=== PATIENT | male | born 1965 | race African-American/Black ===

== ENCOUNTER 2020-11-06 19:59 | Emergency (ER) | payer OTHER, SELFPAY ==
[2020-11-06 20:00] VITALS: BP 179/100; PULSE 133; RESP 20; TEMP 36.6; O2SAT 100; BMI 24.4
--- NOTE | 2020-11-06 20:15 | CT_ITS ---
STUDY: CT ABDOMEN AND PELVIS WITH CONTRAST REASON FOR EXAM: Male, 55 years old. abd pain -- IV PO Contrast RADIATION DOSAGE (If Supplied By Facility): CTDIvol = ( 11.63 ) mGy, DLP = ( 523.46 ) mGycm TECHNIQUE: Transaxial images were obtained from the dome of the diaphragm to the symphysis pubis with oral contrast. IV 100mL Isovue-370 was administered. Sagittal and coronal images were reconstructed. Individualized dose optimization techniques were used for this CT. COMPARISON: None. FINDINGS: The visualized lung bases are unremarkable. The visualized portions of the heart are within normal limits. Normal liver. Normal gallbladder and extrahepatic biliary system. Normal spleen. Normal pancreas. Normal bilateral adrenal glands. Normal right kidney. Normal left kidney. Normal visualized stomach. Dilated loops of small bowel with scattered air-fluid levels involving the lower pelvic region. No discrete transition point at this time. Early small bowel obstruction should be considered versus ileus. There are multiple colonic diverticula consistent with diverticulosis. The appendix is visualized and appears normal. There is diffuse atherosclerotic calcification of the abdominal aorta, without a demonstrated aneurysm. Normal inferior vena cava. Normal retroperitoneum. Normal urinary bladder. Normal visualized prostate gland. Normal abdominal wall. Normal osseous structures. CT/Abdomen/Pelvis WITH Contrast IMPRESSION: Dilated loops of small bowel in the lower abdominal region. No discrete transition point at this time. Possible early small bowel obstruction versus ileus. Colonic diverticulosis without acute diverticulitis. Electronically Signed: Gideon Faustin DO at 22:45 EDT Tel , Service support ,
--- NOTE | 2020-11-06 20:16 | EDS_ITS ---
HPI History of Present Illness Chief Complaint: Abd Pain Informant: patient Onset/Context/Timing Onset: Yesterday Context: Gradual Onset Current Severity: Moderate Maximum Severity: Severe Narrative Narrative: Patient presents with lower abdominal pain, worse in the left lower quadrant that started yesterday. Patient reports a history of diverticulitis and kidney stones. He states after having a bowel movement today and wiping himself he did note some rectal tenderness as well. No blood in the stool. No fevers or chills. Patient denies any prior abdominal surgeries. [facility] Medical History CHF (congestive heart failure) Colon polyp COPD (chronic obstructive pulmonary disease) Diverticulosis HTN (hypertension) Inguinal hernia Home Medications aspirin 81 mg PO DAILY 11/06/20 [History Last Taken Unknown] atorvastatin 11/06/20 [History Last Taken Unknown] cetirizine [Zyrtec] 10 mg PO DAILY 11/06/20 [History Last Taken Unknown] furosemide 11/06/20 [History Last Taken Unknown] gabapentin 400 mg PO TID 11/06/20 [History Last Taken Unknown] metoprolol tartrate 25 mg PO DAILY 11/06/20 [History Last Taken Unknown] ondansetron 4 mg PO Q8H PRN #10 tab 11/06/20 [Rx Last Taken Unknown] oxycodone-acetaminophen [Percocet] 1 tab PO Q6H PRN 3 Days #10 tab 11/06/20 [Rx Last Taken Unknown] sacubitril-valsartan [Entresto] 1 tab PO BID 11/06/20 [History Last Taken Unknown] spironolactone 11/06/20 [History Last Taken Unknown] Allergy/AdvReac Type Severity Reaction Status Date / Time No Known Allergies Allergy Verified 11/06/20 19:59 Social History Smoking Status: Current every day smoker tobacco type: cigarettes ROS ROS ED Constitutional Constitutional ED: Denies chills or fever(s) Eyes Eyes: Denies change in vision ENT ENT ED: Denies sore throat Cardiovascular Cardiovascular: Denies chest pain Respiratory/Chest Respiratory/Chest: Denies cough or dyspnea Gastrointestinal Gastrointestinal: Reports abdominal pain; Denies diarrhea, nausea or vomiting Genitourinary Genitourinary ED: Denies dysuria Musculoskeletal Musculoskeletal: Denies back pain Integumentary Denies rash Neurologic Neurologic: Denies headache(s) or weakness Psychiatric Psychiatric: Denies anxiety or depression Endocrine Endocrinology: Denies polydipsia or polyuria Allergic/Immunologic Allergic/Immunologic ED: Denies urticaria EXAM Physical Exam Const Vital Signs: 11/06/20 20:00 11/06/20 22:55 Temperature 97.9 F Temperature Source Temporal Pulse Rate 133 H 94 Respiratory Rate 20 H 14 Blood Pressure 179/100 H 163/99 H Blood Pressure Mean 126 120 Pulse Ox 100 99 Oxygen Delivery Method Room Air Room Air Positive well nourished and well developed General Appearance ED: well developed HEENT Reports normocephalic and head/scalp atraumatic Eyes PERRL and EOMs intact bilaterally Neck supple Chest Wall inspection of chest normal and palpation of chest normal Resp normal respiratory effort and clear to auscultation bilaterally Cardio regular rate and regular rhythm GI Auscultation: hypoactive bowel sounds Palpation: soft and tender LLQ Extremity normal to inspection Neuro oriented x3 and no sensory deficits noted Sensorium / Orientation: alert Motor Exam: strength 5/5 throughout Psych mental status grossly normal Skin no rashes or lesions noted MDM MDM MDM Narrative Medical decision making narrative: Lab work and urinalysis is obtained. CT scan abdomen pelvis with p.o. and IV contrast is ordered. Patient is given morphine and Zofran for pain control. Lab Data Attestation: I reviewed the patient's lab results. Labs: Laboratory Results - last 24 hr 11/06/20 11/06/20 11/06/20 20:20 20:40 21:00 WBC 6.1 RBC 4.83 Hgb 15.5 Hct 45.9 MCV 95.0 H MCH 32.1 H MCHC 33.8 RDW Std Deviation 45.1 H RDW Coeff of Erich 12.8 Plt Count 229 MPV 9.9 Immature Gran % (Auto) 0.200 Neut % (Auto) 39.0 L Lymph % (Auto) 45.1 H Mcdowell % (Auto) 13.9 H Eos % (Auto) 1.6 Baso % (Auto) 0.2 Absolute Neuts (auto) 2.4 Absolute Lymphs (auto) 2.76 Nucleated RBC % 0 Sodium Cancelled Potassium Cancelled Chloride Cancelled Carbon Dioxide Cancelled Anion Gap Cancelled BUN Cancelled Creatinine Cancelled Estim Creat Clear Calc Cancelled Est GFR (MDRD) Af Amer Cancelled Est GFR (MDRD) Non-Af Cancelled BUN/Creatinine Ratio Cancelled Glucose Cancelled Calcium Cancelled Urine Color Yellow Urine Clarity Clear Urine pH 6.0 Ur Specific Zephyr 1.020 Urine Protein 30 H Urine Glucose (UA) Normal Urine Ketones 5 H Urine Occult Blood 10 H Urine Nitrite Negative Urine Bilirubin Negative Urine Urobilinogen 1 H Ur Leukocyte Esterase 25 H Urine RBC 0 SEEN Urine WBC 0 SEEN Ur Squamous Epith Cells 0 SEEN Calcium Oxalate Crystal 2+ Urine Bacteria 0 SEEN Urine Mucus 0 SEEN 11/06/20 21:00 WBC RBC Hgb Hct MCV MCH MCHC RDW Std Deviation RDW Coeff of Erich Plt Count MPV Immature Gran % (Auto) Neut % (Auto) Lymph % (Auto) Mcdowell % (Auto) Eos % (Auto) Baso % (Auto) Absolute Neuts (auto) Absolute Lymphs (auto) Nucleated RBC % Sodium 141 Potassium 3.8 Chloride 107 Carbon Dioxide 29.0 Anion Gap 5 BUN 7 Creatinine 1.13 Estim Creat Clear Calc 82.03 Est GFR (MDRD) Af Amer 87 Est GFR (MDRD) Non-Af 72 BUN/Creatinine Ratio 6.2 L Glucose 94 Calcium 9.0 Urine Color Urine Clarity Urine pH Ur Specific Zephyr Urine Protein Urine Glucose (UA) Urine Ketones Urine Occult Blood Urine Nitrite Urine Bilirubin Urine Urobilinogen Ur Leukocyte Esterase Urine RBC Urine WBC Ur Squamous Epith Cells Calcium Oxalate Crystal Urine Bacteria Urine Mucus Radiography Diagnostic Testing: Radiology Impression Abdomen/Pelvis CT 11/06/20 20:15 IMPRESSION: Dilated loops of small bowel in the lower abdominal region. No discrete transition point at this time. Possible early small bowel obstruction versus ileus. Colonic diverticulosis without acute diverticulitis. Electronically Signed: Gideon Faustin DO at 22:45 EDT Tel , Service support , Treatment and Re-Evaluation Comments:: On repeat evaluation patient reports pain is improved but still present. Test results discussed with him. At this time lab work is unrema rkable. Urinalysis normal. CT scan reveals dilated loops of small bowel in the lower abdomen. This could represent possible early small bowel obstruction versus ileus. On repeat exam patient does have bowel sounds present. He does continue to have tenderness but no guarding or rebound. Patient lives in [place] and is supposed to go home tomorrow morning. He wishes to try to make at home to see his doctors there. We will give him analgesics and antiemetics. We will make copies of his lab work and CT to take with him. Discharge Plan Triage Chief Complaint: Abd Pain ED Provider: Anastasia Weiner Dx/Rx/DC Orders Clinical Impression: Abdominal pain, Ileus Instructions: Ileus Prescriptions: New oxycodone-acetaminophen [Percocet] 5-325 mg tablet 1 tab PO Q6H PRN (Reason: pain) 3 Days Qty: 10 RF: 0 ondansetron 4 mg tablet,disintegrating 4 mg PO Q8H PRN (Reason: nausea and vomiting) Qty: 10 RF: 0 No Action cetirizine [Zyrtec] 10 mg Tablet 10 mg PO DAILY RF: 0 spironolactone 25 mg Tablet RF: 0 aspirin 81 mg Tablet 81 mg PO DAILY RF: 0 metoprolol tartrate 25 mg Tablet 25 mg PO DAILY RF: 0 Entresto 49-51 mg Tablet 1 tab PO BID RF: 0 atorvastatin RF: 0 furosemide RF: 0 gabapentin 400 mg Tablet 400 mg PO TID RF: 0 [facility] [Primary Care Provider] - Disposition Disposition: Home, Self Care
[2020-11-06 20:33] LABS: Bacteria 0 SEEN /hpf (None Seen); Mucous, Urine 0 SEEN /hpf (<or=2+); Red Blood Cells-Urine 0 SEEN /hpf (0-5); Squamous Epithelial Cells - UA 0 SEEN /hpf (0-5); White Blood Cells 0 SEEN /hpf (0-5)
[2020-11-06 20:44] LABS: Color, Urine Yellow (Yellow); Glucose, Dipstick Normal (Normal); Ketone-Dipstick 5 mg/dl (Negative); Leukocyte Esterase-Dipstick 25 /ul (Negative); Nitrite-Dipstick Negative (Negative); Occult Blood-Urine 10 /ul (Negative); Protein-Dipstick 30 mg/dl (Negative); Urine Bilirubin Dipstick Negative (Negative); Urine Clarity Clear (Clear); Urine Urobilinogen 1 mg/dl (Normal)
[2020-11-06 21:12] LABS: Calcium Oxalate Crystals Ur 2+ /hpf (<or=2+)
[2020-11-06] MEDS: Morphine 4 MG/ML Syringe IV (21:12)
[2020-11-06] MEDS: Ondansetron 4 MG/2 ML Vial IV (21:13)
[2020-11-06 21:22] LABS: Absolute Lymphocyte Count 2.76 X10^3/uL (0.83-4.51); Absolute Neutrophil Count 2.4 X10^3/uL (2.0-7.7); Basophil# 0.01 X10^3/uL; Basophil% 0.2 % (0-1); Eosinophils% 1.6 % (0-5); Hematocrit 45.9 % (40-54); Hemoglobin 15.5 g/dL (13.0-16.5); Lymphocyte # 2.76 X10^3/ul (0.83-4.51); Lymphocyte % 45.1 % (19-41); Mean Corp Hgb Conc 33.8 g/dL (32-36); Mean Corpuscular Hgb 32.1 pg (27.0-32.0); Mean Platelet Vol. 9.9 fl (6.2-12.0); Monocyte# 0.85 X10^3/uL; Monocyte% 13.9 % (0-10); NRBC Flagged by Analyzer 0 % (0-5); Neutrophil # 2.39 X10^3/uL (2.7-7.7); Platelet Count 229 K/mm3 (150-450); RBC Distribution Width CV 12.8 % (11.6-14.6); RBC Distribution Width SD 45.1 fl (35.1-43.9); Red Blood Count 4.83 M/mm3 (4.6-6.2); White Blood Count 6.1 K/mm3 (4.4-11.0)
[2020-11-06 22:00] LABS: BUN 7 mg/dL (7-18); Creatinine, Serum 1.13 mg/dL (0.70-1.30); Estimated Creatinine Clearance 82.03 ml/min; Glucose 94 mg/dL (74-106)
[2020-11-06 22:01] LABS: Anion Gap 5 (5-15); BUN/Creat Ratio 6.2 RATIO (10-20); Chloride 107 mmol/L (98-107); EST Glomerular Filtration Rate 72 mL/min (>60); Est Glom Filt Rate - Afr Amer 87 mL/min (>60); Potassium 3.8 mmol/L (3.5-5.1); Sodium Level 141 mmol/L (136-145)
[2020-11-06 22:55] VITALS: BP 163/99; PULSE 94; RESP 14; O2SAT 99
[2020-11-06] MEDS: HYDROmorphone 0.5 MG/0.5 ML SYRINGE IV (23:14)
[2020-11-06 23:44] VITALS: BP 166/101; PULSE 89; RESP 16; O2SAT 99
== END 2020-11-06 23:45 | disposition home or self-care (01) ==
PROVIDERS: Emergency Provider Emergency Medicine
DX: K56.7 Ileus, unspecified (principal); K57.30 Diverticulosis of large intestine without perforation or abscess without bleeding; F17.210 Nicotine dependence, cigarettes, uncomplicated; I11.0 Hypertensive heart disease with heart failure; I50.9 Heart failure, unspecified; J44.9 Chronic obstructive pulmonary disease, unspecified; Z79.82 Long term (current) use of aspirin; Z79.899 Other long term (current) drug therapy; Z87.442 Personal history of urinary calculi
CPT/HCPCS: 74177; 80048; 81001; 85025; 96374; 96375; 99285; J7030; Q9967; A4216; J2405